=== PATIENT | female | born 1995 | race Two or more races ===

== ENCOUNTER 2024-07-31 03:53 | Inpatient (IN) | payer MEDICAID, SELFPAY ==
[2024-07-31] VITALS (72 sets, daily range): BP systolic 93–141; BP diastolic 61–93; PULSE 62–108; RESP 16–99; TEMP 36.1–36.8; O2SAT 94–100; BMI 35.9
--- NOTE | 2024-07-31 06:11 | PD.LDHP ---
Documentation for date of: 07/31/24 OB Labor/Induct. HPI History of Present Illness Chief complaint: 29 y/o 39w 6d presents to L&D with SROM in early labor : 4 Para: 2 Term pregnancies: 2 pregnancies: 0 Living children: 2 History of Abortions: Spontaneous and Elective: 1 History of Vaginal deliveries: 2 History of sections: No History of : No Date of last menstrual period: 10/04/24 GABRIELE: 08/01/24 Gestational Age (weeks): 39 Gestational Age (days): 6 Gestational age based on last menstrual period: -9 History of present illness: 29 y/o 39w 6d presents to L&D with SROM in early labor. Cervix is 2.5/70/-1 vertex. uncomplicated. Pt has a hx of nvdx2 1 SAB. GBS is neg. EFW 3500g History of Present Dating criteria: based on 1st trimester US only Adequate Care: Yes Ultrasounds: normal 1st trimester US and normal mid trimester US Obstetrical complications: none Medical complications: none Labs Maternal Blood Type: O Pos Labs: Positive: Rubella Titre, Negative: RPR, Hepatitis B, HIV, Chlamydia, Gonorrhea and Group Beta Strep and Unknown: Herpes Type 1, Herpes Type 2 and Covid-19 Review of Systems Review of Systems Systems Reviewed: All systems reviewed, normal except as documented Past Medical History Surgical History SURGICAL: Negative Section Meds Home Medications and Allergies Home Medications ?Medication ?Instructions ?Recorded ?Confirmed ?Type ferrous sulfate 325 mg (65 mg 325 mg PO QDAY 10/01/20 10/06/20 History iron) tablet (iron) prenat.vits,vanesa,nrs-tyax-nyoth 1 tab PO QDAY 10/01/20 10/06/20 History Allergies Allergy/AdvReac Type Severity Reaction Status Date / Time No Known Allergies Allergy Verified 10/06/20 02:32 OB Exam Physical Exam Vital signs: Temp Pulse Resp BP Pulse Ox 97.9 F 86 18 128/86 H 99 07/31/24 04:03 07/31/24 04:03 07/31/24 04:03 07/31/24 04:03 07/31/24 04:42 Constitutional Constitutional: no acute distress Routine HEENT Exam Head: Present normocephalic and atraumatic Eye: Present EOMI, PERRL and normal accommodation ENT: Present mucous membranes moist Routine Neck Exam Neck: Present full ROM Routine Respiratory Exam Respiratory: Absent respiratory distress Routine Cardiovascular Exam Cardiovascular: Present RRR Routine Abdominal Exam Abdominal: Present soft and normoactive bowel sounds Comments: Gravid Uterus EFW 3500g Routine Exam External: Present normal urethra appearance; Absent lesions Detailed Labor and Delivery Exam Dilation (cm): 2.5 Effacement (%): 70 Cervix position: posterior station: -2 Consistency: soft Presentation: Vertex Membranes: ruptured Amniotic fluid: clear monitor accelerations: 15x15 monitor 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) Contraction frequency (min): 2-3 Contraction duration (sec): 40-60 Tachysystole: No Contraction intensity: Moderate Routine Extremities Exam Extremities: Present full ROM Routine Back/Spine/Pelvis Exam Back/Spine: Present full ROM Routine Skin Exam Skin: Present intact, dry and warm Routine Neurological Exam Neurological: Present alert, oriented X3 and CN II-XII intact Routine Psychiatric Exam Psychiatric: Present normal affect and normal thought process OB Assessment & Plan Assessment and Plan (1) with 39 completed weeks gestation: Status: Acute (2) Normal labor: Status: Acute Additional Plan Induction method: none Plan: augmentation (Pitocin), anticipate NVD and consult prn Additional Plan Comment: Routine Admit orders Continuous EFM Dr. Garcia updated
[2024-07-31 06:50] LABS: Basophils % (Auto) 0 % (0-2.5); Eosinophils # (Auto) 0.1 Thou/mm3 (0.0-0.5); Eosinophils % (Auto) 1 % (0-10); Hematocrit 39.1 % (36.0-46.0); Immature Granulocytes % (Auto) 2 % (0-0); Immature Granulocytes Auto 0.16 Thou/mm3 (0.00-0.00); Lymphocytes # (Auto) 2.5 Thou/mm3 (1.0-4.8); Lymphocytes % (Auto) 27 % (10-50); Mean Corpuscular HGB Conc 33.2 g/dl (31.0-37.0); Mean Corpuscular Hemoglobin 28.2 pg (25.0-35.0); Mean Corpuscular Volume 85 fL (80-100); Monocytes # (Auto) 0.6 Thou/mm3 (0.0-0.8); Monocytes % (Auto) 6 % (0-12); Neutrophils # (Auto) 5.9 Thou/mm3 (1.8-7.7); Neutrophils % (Auto) 64 % (37-80); Nucleated Red Blood Cell % 0 /100 WBC (0); Platelet Count 207 Thou/mm3 (140-440); RDW Standard Deviation 42.2 fL (36.4-46.3); Red Blood Count 4.61 Miln/mm3 (4.00-5.20); White Blood Count 9.2 Thou/mm3 (3.6-11.0)
[2024-07-31 07:29] LABS: Syphilis Nonreactive (Nonreactive)
[2024-07-31] MEDS: OXYTOCIN in NS 30 units 30 UNIT/500 ML BAG IV (08:15)
--- NOTE | 2024-07-31 09:51 | PD.LDPN ---
Documentation for date of: 07/31/24 OB Labor Progress Note Pain Control Pain control: tolerating well Pelvic Exam Dilation (cm): 4 Effacement (%): 70 station: -1 Amniotic membrane status: Ruptured Contractions Monitor mode: External Contraction frequency: 2-3 Contraction intensity: Moderate Status status: Category l Assessment and Plan Pitocin rate (mU/min): 1 Assessment: other (Latent labor) Plan OB labor note: continuous present management Comments: Pt is doing well making progress Continue to increase pitocin per protocol Consult anesthesia for an epidural per pt request Anticipate
[2024-07-31] MEDS: fentaNYL CIT INJ 50 mCg/ML AMP 2ML 100 MCG IVP (10:40)
[2024-07-31] MEDS: MINERAL OIL 30 ML UDC TOP (11:55)
[2024-07-31] MEDS: LIDOCAINE HCL 1% 20 ML VIAL INFL (12:15)
[2024-07-31] MEDS: OXYTOCIN in NS 20 units 20 UNIT/1,000 ML BAG 125 UNIT IV (12:28)
[2024-07-31] MEDS: BENZO/LANO/ALOE (Dermoplast) 60 GM CAN 1 SPRAY TOP (12:28)
[2024-07-31] MEDS: TRANEXAMIC ACID 1,000 MG IVPB 1,000 MG/100 ML BAG 200 MG IV ×2 (12:32→14:18)
--- NOTE | 2024-07-31 12:43 | PD.LDDELS ---
Data ([place]) Data Hx Section: No Maternal Blood Type: O Pos Rubella Titre: Positive RPR: Non-reactive Labs: Negative: RPR, Hepatitis B, HIV, Chlamydia, Gonorrhea and Group Beta Strep and Unknown: Herpes Type 1 and Herpes Type 2 : 4 Para: 2 Term: 2 : 0 Livin Abortions: Spontaneous & Theraputic: 1 Delivery Data ([place]) Labor Data Initiation of labor: Induction Induction/Augmentation Agent: Pitocin ROM date: 07/31/24 ROM time: 02:30 Amniotic membrane rupture type: Spontaneous Amniotic fluid description: Clear Delivery Data EDC: 08/01/24 EDC calculated by:: ultrasound Onset of labor date: 07/31/24 Onset of labor time: 02:30 Complete dilation date: 07/31/24 Complete dilation time: 11:53 delivery date: 07/31/24 [place] delivery time: 12:13 Gestational age (weeks): 39 Gestational age (days): 6 Placenta delivery date: 07/31/24 Placenta delivery time: 12:37 Stage 1 total time: Labor - Stage 1 Duration 9 hours and 23 minutes Delivered by: Iesha Bustillos Delivery nurse: Burke Rankin RN [place] nurse: Fernandez Reese RN & Josselin BLUE Support person(s) at delivery: fob Delivery Method Delivery method: Normal Vaginal Delivery Presentation: Vertex position: OA Anesthesia Type Anesthesia Type: Local Delivery Room Medications Delivery room medications: Lidocaine (local), Pitocin 20 u IV and See Anesthesia record (TXA x2) Placenta Placenta delivery description: Spontaneous Cord blood sent to lab: Yes cord blood collection: Cord Blood Type Episiotomy Episiotomy description: Right Mediolateral Perineal repair Sutures used for repair: 3.0 Vicryl (CT x3) EBL Estimated blood loss (ml): 300 Umbilical Cord cord description: 3 Vessels Additional Procedures Patient pushed for about 15 minutes and had an of a viable female . Infant's anterior shoulder delivered with gentle downward traction subsequent deliver the posterior shoulder and the body without complications. placed on mother's abdomen. Vigorous cry upon delivery. Cord was clamped. Cut by FOB. Cord blood obtained. Three-vessel cord noted. Placenta expelled spontaneously and intact. A right medial lateral episiotomy was made. Repaired using a 3-[address] suture x3. Excellent hemostasis achieved after vigorous fundal massage and removal of clots from the posterior fornix. EBL 300. Patient received IV Pitocin and TXA x 2. Patient to get Ancef 2 g every 8 for 24 hours. Sponge and needle count correct. Mother and baby stable, skin to skin and bonding in LDR. [place] Data ([place]) [place] Data 's gender: Female weight (gms): 3970 g Weight (pounds): 8 lbs and 12.0 ozs 1 minute: 6 5 minutes: 8 10 minutes: 9
[2024-07-31] MEDS: ceFAZolin/D5W 2 GM IV 2 GM/100 ML BAG IV ×2 (13:10→21:36)
--- NOTE | 2024-07-31 14:30 | PC.NURSE ---
RN at bedside fundal massage done before getting pt up to restroom, large clot and continuos trickle of blood noted, RN called JAMES Sinha to bedside for further assistance, manual extraction of clots and large gush of blood after manual extraction.
[2024-07-31] MEDS: METHYLERGONOVINE INJ 0.2 MG/ML VIAL IM (14:42)
[2024-07-31] MEDS: MISOPROSTOL 200 mCg TABLET 800 MCG PR (14:43)
[2024-07-31] MEDS: IBUPROFEN TAB 400 MG TABLET 800 MG PO (14:58)
[2024-07-31 17:17] LABS: Basophils % (Auto) 0 % (0-2.5); Eosinophils % (Auto) 0 % (0-10); Hematocrit 38.8 % (36.0-46.0); Hemoglobin 13.5 g/dL (12.0-16.0); Immature Granulocytes % (Auto) 1 % (0-0); Immature Granulocytes Auto 0.13 Thou/mm3 (0.00-0.00); Lymphocytes # (Auto) 1.3 Thou/mm3 (1.0-4.8); Lymphocytes % (Auto) 6 % (10-50); Mean Corpuscular HGB Conc 34.8 g/dl (31.0-37.0); Mean Corpuscular Hemoglobin 28.2 pg (25.0-35.0); Mean Corpuscular Volume 81 fL (80-100); Monocytes # (Auto) 1.1 Thou/mm3 (0.0-0.8); Monocytes % (Auto) 5 % (0-12); Neutrophils # (Auto) 18.1 Thou/mm3 (1.8-7.7); Neutrophils % (Auto) 88 % (37-80); Nucleated Red Blood Cell % 0 /100 WBC (0); Platelet Count 178 Thou/mm3 (140-440); RDW Standard Deviation 39.4 fL (36.4-46.3); Red Blood Count 4.79 Miln/mm3 (4.00-5.20); White Blood Count 20.7 Thou/mm3 (3.6-11.0)
[2024-07-31] MEDS: ACETAMINOPHEN 325 MG TABLET 650 MG PO (21:09)
[2024-08-01] MEDS: IBUPROFEN TAB 400 MG TABLET 800 MG PO ×2 (04:20→10:30)
[2024-08-01 04:22] VITALS: BP 99/68; PULSE 70; RESP 16; TEMP 36.7; O2SAT 96
[2024-08-01] MEDS: ceFAZolin/D5W 2 GM IV 2 GM/100 ML BAG IV (06:00)
--- NOTE | 2024-08-01 06:47 | ESDS_ITS ---
DS: Providers Provider Date of admission: 07/31/24 05:10 Primary care physician: Emil Feliz MD Admitting Provider: Danika Garcia MD Attending Provider on Admission: Danika Garcia MD Attending Provider on DC: Iesha Bustillos CNM Discharging Provider: Iesha Bustillos CNM Anticipated date of discharge: 08/01/24 DS: Diagnosis Discharge Diagnosis (1) Normal spontaneous vaginal delivery: Status: Acute (2) Encounter for care of lactating mother: Status: Acute (3) Normal labor: Status: Acute (4) with 39 completed weeks gestation: Status: Acute Problem List Completed Was Problem List Reviewed/Reconciled?: Yes Summary/Hosp Course Brief History: 29 y/o 39w 6d presents to L&D with SROM in early labor. Cervix is 2.5/70/-1 vertex. uncomplicated. Pt has a hx of nvdx2 1 SAB. GBS is neg. EFW 3500g 07/31/24: Patient pushed for about 15 minutes and had an of a viable female . 's anterior shoulder delivered with gentle downward traction subsequent deliver the posterior shoulder and the body without complications. Infant placed on mother's abdomen. Vigorous cry upon delivery. Cord was clamped. Cut by FOB. Cord blood obtained. Three-vessel cord noted. Placenta expelled spontaneously and intact. A right medial lateral episiotomy was made. Repaired using a 3-[address] suture x3. Excellent hemostasis achieved after vigorous fundal massage and removal of clots from the posterior fornix. EBL 300. Patient received IV Pitocin and TXA x 2. Patient to get Ancef 2 g every 8 for 24 hours. Sponge and needle count correct. Mother and baby stable, skin to skin and bonding in LDR. 08/01/24: PPD#1 patient is doing well and denies dizziness shortness of breath. Patient is stable and afebrile. Uterus is nontender fundus firm minimal lochia. Laceration healing well. Discharge instructions given. Pat ient to follow-up with Iesha Bustillos CNM in 3 weeks Peripartum Data Delivery Method: Normal Vaginal Delivery Episiotomy Description: Right Mediolateral Laceration Description: yes complications: none [place] 1: Gender: Female Disposition of : home Status at Discharge Cognitive/behavioral status at discharge: Alert and oriented x 3 Functional status at discharge: independent ambulation Overall status at discharge: patient is progressing back to baseline Time Spent with Patient Time attestation: Total time spent providing and/or coordinating discharge services: Time spent: Greater than 30 minutes Exam Vital Signs Temp Pulse Resp BP Pulse Ox 97.0 F 68 18 123/61 98 07/31/24 07:30 07/31/24 12:47 07/31/24 04:03 07/31/24 12:47 07/31/24 12:11 Constitutional Constitutional: no acute distress Routine HEENT Exam Head: Present normocephalic and atraumatic Eye: Present EOMI, PERRL and normal accommodation ENT: Present mucous membranes moist Routine Neck Exam Neck: Present supple, full ROM and trachea midline Routine Respiratory Exam Respiratory: Present chest non-tender, lungs clear, normal breath sounds and no resp distress Routine Cardiovascular Exam Cardiovascular: Present RRR Routine Abdominal Exam Abdominal: Present soft and normoactive bowel sounds Comments: Uterus nontender Fundus firm Routine Exam External: Present normal urethra appearance and lacerations (Healing); Absent lesions Routine Extremities Exam Extremities: Present full ROM, pulses intact and normal capillary refill; Absent calf tenderness or tenderness Routine Back/Spine/Pelvis Exam Back/Spine: Present full ROM Routine Skin Exam Skin: Present intact, dry and warm Routine Neurological Exam Neurological: Present alert, oriented X3 and CN II-XII intact Routine Psychiatric Exam Psychiatric: Present normal affect and normal thought process Discharge Plan Plan Patient Disposition: HOME (Self Care) Patient condition on transfer: Stable Prescriptions/Referrals Prescriptions/Med Rec: New ibuprofen 800 mg tablet 800 mg PO Q6H MDD 4 PRN (Reason: pain) Qty: 90 0RF docusate sodium [Colace] 100 mg capsule 100 mg PO BID Qty: 60 0RF lanolin 50 % ointment 1 applic topical TID PRN (Reason: skin irritation) Qty: 15 0RF Continued ferrous sulfate [iron] 325 mg (65 mg iron) Tablet 325 mg PO QDAY No Action Dermoplast (with menthol) 20-0.5 % aerosol 1 spray topical TID Qty: 56 0RF ibuprofen 800 mg tablet 800 mg PO Q6H MDD 4 PRN (Reason: pain) Qty: 120 0RF docusate sodium [Colace] 100 mg capsule 100 mg PO BID Qty: 60 0RF lanolin 50 % ointment 1 applic topical TID PRN (Reason: skin irritation) Qty: 15 0RF prenat.vits,vanesa,[id number] Tablet 1 tab PO QDAY Referrals: Emil Feliz MD [Primary Care Provider] - Patient/Caregiver Discharge Instructions Meds to Beds: No Discharge Activity: activity as tolerated Other Discharge Activity Instructions:: Follow-up with Iesha Bustillos CNM in 3 weeks Education Materials: After a Vaginal , After Delivery [place] Concerns, : Caring for Yourself Print Language: Estonian Stand Alone Forms: [place] Award Info., Patient Portal Info Letter Discharge Order Discharge Orders: Discharge (Routine); Ordered 08/01/24 Ordered By: Iesha Bustillos Planned Discharge Date 08/01/24
[2024-08-01] MEDS: DOCUSATE SOD 100 MG CAPSULE PO (10:29)
[2024-08-01 12:41] LABS: Basophils % (Auto) 0 % (0-2.5); Eosinophils % (Auto) 0 % (0-10); Hemoglobin 11.8 g/dL (12.0-16.0); Immature Granulocytes % (Auto) 1 % (0-0); Immature Granulocytes Auto 0.09 Thou/mm3 (0.00-0.00); Lymphocytes # (Auto) 2.8 Thou/mm3 (1.0-4.8); Lymphocytes % (Auto) 20 % (10-50); Mean Corpuscular HGB Conc 33.7 g/dl (31.0-37.0); Mean Corpuscular Hemoglobin 28.5 pg (25.0-35.0); Mean Corpuscular Volume 85 fL (80-100); Monocytes # (Auto) 0.6 Thou/mm3 (0.0-0.8); Monocytes % (Auto) 4 % (0-12); Neutrophils # (Auto) 10.4 Thou/mm3 (1.8-7.7); Neutrophils % (Auto) 75 % (37-80); Nucleated Red Blood Cell % 0 /100 WBC (0); Platelet Count 201 Thou/mm3 (140-440); RDW Standard Deviation 41.9 fL (36.4-46.3); Red Blood Count 4.14 Miln/mm3 (4.00-5.20)
[2024-08-01] MEDS: ACETAMINOPHEN 325 MG TABLET 650 MG PO (14:56)
== END 2024-08-01 15:10 | disposition home or self-care (01) | DRG 560 ==
LOC: S4SX 12:52 → S4NX 15:22
PROVIDERS: Nurse Practitioner Women's Health; Admitting Provider Student in an Organized Health Care Education/Training Program; PCP Family Medicine; Visit Provider Specialist
DX: O42.92 Full-term premature rupture of membranes, unspecified as to length of time between rupture and onset of labor (principal); Z37.0 Single live birth; Z3A.39 39 weeks gestation of pregnancy
CPT/HCPCS: 36415; 59025; 59409; 85025; 86780; 86850; 86900; 86901; 94762; J0689; J2210; J2590; J3010; J3490; S0191; A9270